=== PATIENT | female | born 1975 | race Caucasian/White ===

== ENCOUNTER 2022-12-17 07:03 | Outpatient (CLI) | payer OTHER, SELFPAY ==
--- NOTE | ~2022-12-17 | MR_ITS ---
MRI of the right knee Clinical history: Pain Technique: Coronal proton density and proton density-weighted images, sagittal proton-density and T2 fat-sat images, and axial proton-density fat-saturated images were acquired. Findings: Anterior and posterior cruciate ligaments are intact. Medial collateral ligament and the la teral collateral ligament complex are intact. Popliteus tendon is intact. Medial and lateral menisci are intact, without evidence of tear. Articular cartilage is well preserved in the medial and lateral compartments. There is patchy mild to moderate chondromalacia along the femoral trochlea. There is moderate chondromalacia along the later al patellar facet. Extensor mechanism is intact. Small joint effusion is present. Minimal Sellers's cyst. Distal vastus la teralis muscle belly is not visualized. 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 Small joint effusion. Distal vastus lateralis muscle belly is not visualized. This could be normal variant related to patie nt body habitus. Correlate for any history of muscle injury/atrophy, or other pathology related to th e lateral quadriceps musculature. Dedicated thigh MR could be considered to better evaluate the vastu s lateralis muscle belly, especially for acute injury, if clinically indicated. Reviewed, dictated and finalized at location . 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 Small joint effusion. Distal vastus lateralis muscle belly is not visualized. This could be normal va riant related to patient body habitus. Correlate for any history of muscle inju ry/atrophy, or other pathology related to the lateral quadriceps musculature. D edicated thigh MR could be considered to better evaluate the vastus lateralis m uscle belly, especially for acute injury, if clinically indicated.
== END 2022-12-17 07:04 | disposition home or self-care (01) ==
PROVIDERS: Visit Provider Orthopaedic Surgery
DX: M25.461 Effusion, right knee (principal)
CPT/HCPCS: 73721